=== PATIENT | female | born 2000 | race American Indian/Alaskan Native ===

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

== ENCOUNTER 2019-12-27 23:11 | Emergency (ER) | payer SELFPAY ==
[2019-12-28 00:31] VITALS: BP 115/81
== END 2019-12-28 00:45 | disposition left against medical advice (07) ==
LOC: ED 23:11
DX: M25.541 Pain in joints of right hand (principal); Z53.21 Procedure and treatment not carried out due to patient leaving prior to being seen by health care provider